=== PATIENT | male | born 1975 | race Caucasian/White ===

== ENCOUNTER → 2018-06-04 | Emergency (ER) | payer OTHER ==
[~2018-06-04] VITALS: Ht 167.6 cm; Wt 63.5 kg
[~2018-06-04] MED LIST: ARIP10TA9 PO; BUSP5TAB3 PO; CLON2TAB PO; CLONAZEPAM 0.5 MG TABLET PO ONE; CLONAZEPAM 1 MG TABLET ONE; GABA800T2 PO; GABAPENTIN 400 MG CAPSULE ONE; GABAPENTIN 400 MG CAPSULE PO ONE; ONDANSETRON ODT 4 MG TAB.RAPDIS ONE; SERT50TA PO; VENL75TA4 PO; VENLAFAXINE XR 37.5 MG CAP.SR.24H ONE; VENLAFAXINE XR 37.5 MG CAP.SR.24H PO ONE
--- NOTE | 2018-06-04 13:33 | NUR ---
PT IS IN ROOM #2B. DR CHANDLER EVALUATED THE PT.
[2018-06-04 13:45] LABS: *BILIRUBIN,URIN NEGATIVE (NEGATIVE); *BLOOD, URINE NEGATIVE (NEGATIVE); *CLARITY,URINE CLEAR (CLEAR); *COLOR,URINE YELLOW (YELLOW); *KETONES,URINE NEGATIVE (NEGATIVE); *PROTEIN,URINE NEGATIVE (NEGATIVE); *UROBILINOGEN,URINE 0.2 E.U./dl (NORMAL); LEUKOCYTE ESTERASE ,URINE NEGATIVE (NEGATIVE); NITRITE, URINE NEGATIVE (NEGATIVE); PH,URINE 6.5 (5.0-8.0); UGLUCOSE NEGATIVE (NEGATIVE)
[2018-06-04 13:51] LABS: BACTERIA,URINE FEW /HPF (NONE SEEN); RBC,URINE 0-3 /HPF (0-3); SQUAMOUS EPITHELIAL CELL,UR FEW /HPF (NONE SEEN); WBC,URINE 0-3 /HPF (0-3)
[2018-06-04 13:52] LABS: BASOPHILS # (AUTO) 0.1 K/uL (0.0-8.0); BASOPHILS % (AUTO) 0.9 % (0.0-2.0); EOSINOPHILS # (AUTO) 0.6 K/uL (0.0-0.7); HEMATOCRIT 39.8 % (36.7-47.1); HEMOGLOBIN 13.6 g/dL (12.5-16.3); LYMPHOCYTES # (AUTO) 2.2 K/uL (20.0-40.0); LYMPHOCYTES % (AUTO) 22.9 % (20.5-51.5); MEAN CORPUSCULAR HEMOGLOBIN 30.3 uug (23.8-33.4); MEAN CORPUSCULAR HGB CONC 34 g/dL (32.5-36.3); MONOCYTES # (AUTO) 0.5 K/uL (2.0-10.0); MONOCYTES % (AUTO) 4.9 % (0.0-11.0); NEUTROPHILS # (AUTO) 6.3 K/uL (1.8-8.9); NEUTROPHILS % (AUTO) 65.3 % (38.5-71.5); PLATELET COUNT (AUTO) 264 K/uL (152-348); RED BLOOD CELL COUNT(AUTO) 4.47 MIL/uL (4.06-5.63); WHITE BLOOD COUNT (AUTO) 9.6 K/uL (3.6-10.2)
[2018-06-04 14:00] LABS: CARBON DIOXIDE 30 mmol/L (21-32); CHLORIDE 107 mmol/L (98-107); CREATININE 0.8 mg/dL (0.6-1.3); GLUCOSE 101 mg/dL (74-106); POTASSIUM 3.9 mmol/L (3.5-5.1); UREA NITROGEN, BLOOD 12 mg/dL (7-18)
[2018-06-04 14:02] LABS: *AMPHETAMINE, URINE NEGATIVE (NEGATIVE); *BARBITURATE, URINE NEGATIVE (NEGATIVE); *CANNABINOID, URINE POSITIVE (NEGATIVE); *COCCAINE, URINE NEGATIVE (NEGATIVE); *OPIATE, URINE NEGATIVE (NEGATIVE); *PHENCYCLIDINE SCREEN,URINE NEGATIVE (NEGATIVE)
[2018-06-04 14:05] LABS: ETHANOL < 3 MG/DL (0-0)
[2018-06-04 14:06] LABS: ALANINE AMINOTRANSFERASE 32 U/L (16-63); ALKALINE PHOSPHATASE 83 U/L (50-136); ASPARTATE AMINOTRANSFERASE 19 U/L (15-37); BILIRUBIN,DIRECT 0.1 mg/dL (0.0-0.2); BILIRUBIN,TOTAL 0.4 mg/dL (0.2-1.0); TOTAL PROTEIN, SERUM 7.1 g/dL (6.4-8.2)
[2018-06-04 14:07] LABS: ACETAMINOPHEN < 2.0 ug/mL (10-30)
--- NOTE | 2018-06-04 14:21 | NUR ---
[employer] TRUCK DRIVER ADRIENNE WAS CALLED. ADAM IS 1 HOUR. CONTINUE TO MONITOR THE PT.
--- NOTE | 2018-06-04 14:45 | NUR ---
PT WAS EVALUATED BY CRISIS BLOCK SORTER SHANNAN.
--- NOTE | 2018-06-04 15:18 | NUR ---
Summary report faxed to [facility] [place] for potential transfer. Awaiting response from coordinator of genetic services,
--- NOTE | 2018-06-04 16:34 | NUR ---
Call received from Lula (INTAKE) at [facility]. Patient has been accepted by Dr. Mclaughlin. Patient will go to 'unit 2,' telephone number for report is [phone].
--- NOTE | 2018-06-04 16:45 | NUR ---
Call placed to [facility] for transportation to [facility] [place] [address], Trip #[id number].
--- NOTE | 2018-06-04 18:16 | NUR ---
Call received from [facility] changed to 1914.
--- NOTE | 2018-06-04 19:34 | NUR ---
SPOKE TO GIANNI MCPHERSON FROM [facility]. REPORT GIVEN. 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 REPORT GIVEN. PATIENT IS AWAKE, ALERT AND ORIENTED. ALL BELONGINGS WITH PATIENT.
== END | disposition home or self-care (01) ==
LOC: ER 13:09
DX: R45.851 Suicidal ideations (principal); F32.9 Major depressive disorder, single episode, unspecified; F41.9 Anxiety disorder, unspecified; F31.9 Bipolar disorder, unspecified; F17.200 Nicotine dependence, unspecified, uncomplicated; Z59.0 Homelessness; Z79.899 Other long term (current) drug therapy
CPT/HCPCS: 36415; 80307; 85025; A4663; G0480; G0480-TC; Q0162